=== PATIENT | female | born 1980 | race Caucasian/White ===

== ENCOUNTER 2020-02-12 15:02 | Emergency (ER) | payer BC ==
[~2020-02-12] VITALS: Ht 162.6 cm; Wt 58.6 kg
[2020-02-12 15:08] VITALS: BP 114/69
== END 2020-02-12 16:32 | disposition home or self-care (01) ==
LOC: ER 15:03
DX: J02.9 Acute pharyngitis, unspecified (principal); R51 Headache; R53.83 Other fatigue; Z20.828 Contact with and (suspected) exposure to other viral communicable diseases; Z91.048 Other nonmedicinal substance allergy status
CPT/HCPCS: 36415; 87635; 99283